=== PATIENT | female | born 1970 | race Caucasian/White ===

== ENCOUNTER 2017-08-25 11:03 | Outpatient (CLI) | payer BC | END 2017-08-25 11:04 | disposition home or self-care (01) | LOC: BICMAMMO 11:03 | PROVIDERS: ATTEND Family Medicine | DX: Z12.31 Encounter for screening mammogram for malignant neoplasm of breast (principal) | CPT/HCPCS: 77063; 77067 ==

== ENCOUNTER 2018-11-25 11:05 | Outpatient (CLI) | payer BC ==
--- NOTE | 2018-11-25 13:43 | ULT ---
ULTRASOUND ABDOMEN COMPLETE: INDICATIONS: Chronic nausea. Epigastric pain. TECHNIQUE: Becerril-scale ultrasound evaluation of the liver, gallbladder, spleen, pancreas, common bile duct, kidne ys, abdominal aorta, and inferior vena cava (IVC). FINDINGS: No focal hepatic lesion or acute gallbladder pathology. The common duct measures 6 mm in diameter, wh ich is mildly dilated. Myers sign is reported as negative by academic affairs manager. No overt hydronephrosis of either kidney. Spleen is mostly obscured by persistent shadowing, limiting assessment in this regard . The pancreas is also partially obscured from view by bowel content, limiting assessment. No evidenc e of aortic aneurysm within the visualized aspects. No ascites. IMPRESSION: 1. Dilated common duct. Recommend correlation with biliary laboratory values in order to exclude a biliary obstructive process. 2. Otherwise no acute intra-abdominal process identified. POS: [facility]
== END 2018-11-25 11:06 | disposition home or self-care (01) ==
LOC: SCSULT 11:05
PROVIDERS: ATTEND Internal Medicine
DX: R10.10 Upper abdominal pain, unspecified (principal); R11.0 Nausea; K83.8 Other specified diseases of biliary tract
CPT/HCPCS: 76700

== ENCOUNTER 2018-12-21 07:48 | Outpatient (CLI) | payer BC ==
--- NOTE | 2018-12-21 12:49 | NM ---
NM Gastric Empty Scan W/Meal History: Nausea and vomiting Comparison: None. Findings: Imaging of the abdomen was performed after the oral administration 1.9 mCi technetium 99m s ulfur colloid in egg. There is normal gastric emptying with 64% emptying at 33 minutes, 78% emptying at 60 minutes, 91% emp tying at 119 minutes, 99% emptying at 200 minutes, and complete emptying at 210 minutes. Impression: Normal gastric emptying study.
== END 2018-12-21 07:49 | disposition home or self-care (01) ==
LOC: NM 07:48
PROVIDERS: ATTEND Internal Medicine
DX: R10.13 Epigastric pain (principal); R11.0 Nausea
CPT/HCPCS: 78264; A9541

== ENCOUNTER 2019-01-07 07:45 | Outpatient (CLI) | payer BC ==
--- NOTE | 2019-01-07 11:01 | NM ---
HEPATOBILIARY SCAN: HISTORY:Epigastric abdominal pain RADIOPHARMACEUTICAL: 5.4 mCi Technetium 99m Mebrofenin injected intravenously. 8 ounces Ensure was gi tatianna by mouth 1 hour post injection of radiopharmaceutical. FINDINGS: There is normal tracer extraction by the liver with normal excretion into the biliary tracts. The gal lbladder is identified by the 6 minute time jackie. The gallbladder ejection fraction is 87%. IMPRESSION:Normal exam.
== END 2019-01-07 07:46 | disposition home or self-care (01) ==
LOC: NM 07:45
PROVIDERS: ATTEND Internal Medicine
DX: R10.13 Epigastric pain (principal); R11.0 Nausea
CPT/HCPCS: 78227; A9537

== ENCOUNTER 2022-01-07 13:10 | Outpatient (CLI) | payer BC | END 2022-01-07 13:11 | disposition home or self-care (01) | LOC: BICMAMMO 13:10 | PROVIDERS: ATTEND Obstetrics & Gynecology | DX: R92.8 Other abnormal and inconclusive findings on diagnostic imaging of breast (principal) | CPT/HCPCS: G0279 ==

== ENCOUNTER 2023-08-19 14:31 | Outpatient (CLI) | payer BC | END 2023-08-19 14:32 | disposition home or self-care (01) | LOC: SCSMRI 14:31 | PROVIDERS: ATTEND Family Medicine | DX: R42 Dizziness and giddiness (principal) | CPT/HCPCS: 70553 ==